=== PATIENT | male | born 1980 | race Caucasian/White ===

== ENCOUNTER 2020-11-12 21:14 | Emergency (ER) | payer BC ==
[2020-11-12] MEDS ORDERED: cefTRIAXone 2 GM in Sodium Chloride 0.9% 100 ML IV ONE (21:38)
[2020-11-12] MEDS ORDERED: Sodium Chloride 0.9% 10 ML Syringe FLUSH PRN (21:38)
[2020-11-12] MEDS ORDERED: Lidocaine/EPINEPHrine/Tetracaine Soln 1 ML TOP ONE (21:44)
[2020-11-12] MEDS ORDERED: Lidocaine 1% with EPINEPHrine 1:100,000 10 ML MDV INJECT ONE (21:51)
--- NOTE | 2020-11-12 21:57 | EDM.PDOC ---
ED HPI GENERAL MEDICAL PROBLEM - General Chief Complaint: Lower Extremity Injury/Pain Stated Complaint: RIGHT KNEE SWOLLEN/PAINFUL Time Seen by Provider: 11/12/20 21:23 Source of Information: Reports: Patient History Limitations: Reports: No Limitations - History of Present Illness INITIAL COMMENTS - FREE TEXT/NARRATIVE: The patient presents with left knee swelling, pain and redness. This all started on Thursday. [place] helping out the day before. He may have knelt on something. He has a low grade temp. He has no other symptoms such as cough, congestion, runny nose, chest pain, shortness of breath, abdominal pain, nausea or vomiting. He went to see Dr Jacobs in our clinic today and she did labs and a blood cultures and put him on keflex. She told him to go to the ER if he got worse. He has more swelling and the redness has spread up and down his leg. He has no medical problems. Onset: Gradual Duration: Day(s): Location: Reports: Lower Extremity, Right (knee) Quality: Reports: Sharp Severity: Moderate Improves with: Reports: Immobilization Worsens with: Reports: Movement Associated Symptoms: Reports: Fever/Chills. Denies: Chest Pain, Cough, Headaches, Nausea/Vomiting, Shortness of Breath - Related Data Allergies Allergy/AdvReac Type Severity Reaction Status Date / Time No Known Allergies Allergy Verified 11/12/20 21:25 Home Meds: Home Meds Losartan/Hydrochlorothiazide [Losartan-HCTZ 50-12.5 MG] 1 tab PO DAILY 11/12/20 [History] Omeprazole 40 mg PO DAILY 11/12/20 [History] Sertraline HCl 50 mg PO DAILY 11/12/20 [History] cephALEXin [Cephalexin] 1,000 mg PO BID 11/12/20 [History] Past Medical History Cardiovascular History: Reports: High Cholesterol, Hypertension Gastrointestinal History: Reports: GERD Social & Family History - Tobacco Use Tobacco Use Status *Q: Never Tobacco User Second Hand Smoke Exposure: No - Caffeine Use Caffeine Use: Reports: Coffee - Recreational Drug Use Recreational Drug Use: No Review of Systems - Review of Systems Review Of Systems: See Below Constitutional: Reports: No Symptoms Eyes: Reports: No Symptoms Ears: Reports: No Symptoms Nose: Reports: No Symptoms Mouth/Throat: Reports: No Symptoms Respiratory: Reports: No Symptoms Cardiovascular: Reports: No Symptoms GI/Abdominal: Reports: No Symptoms Genitourinary: Reports: No Symptoms Musculoskeletal: Reports: Other (Right knee pain, redness and swelling) ED EXAM, GENERAL - Physical Exam Exam: See Below Exam Limited By: No Limitations General Appearance: Alert, No Apparent Distress Ears: Normal External Exam Nose: Normal Inspection Head: Atraumatic, Normocephalic Neck: Normal Inspection Respiratory/Chest: No Respiratory Distress Extremities: Other (Erythema and edema to the right knee with spead of the erythema up his leg and down his leg. He does not appear to have a joint effusion. He has good sensation and pulses distally.) ED TRAUMA EXTREMITY PROCEDURES - I&D Site: right knee Skin Prep: Other (Chlorprep) Local Anesthesia: Lidocaine: 1% with EPI (and LET) Local Anesthetic Volume: 2cc Area Incised With: Needle (18 gauge) Drainage: Purulent, Small Amount (5ccs) Complications: No Course - Vital Signs Last Recorded V/S: Last Vital Signs Temp 97.6 F 11/12/20 21: Pulse 95 11/12/20 21:22 Resp 16 11/12/20 21:22 BP 168/94 H 11/12/20 21:22 Pulse Ox 98 11/12/20 21:22 - Orders/Labs/Meds Orders: Active Orders 24 hr Category Date Time Status Peripheral IV Care [RC] . DIRECTED Care 11/12/20 21:38 Active CULTURE BODY FLUID + SMEAR [RM] Stat Lab 11/12/20 22:44 Ordered Sodium Chloride 0.9% [Saline Flush] Med 11/12/20 21:38 Active 10 ml FLUSH ASDIRECTED PRN Peripheral IV Insertion Adult [OM.PC] Routine Oth 11/12/20 21:38 Ordered Medication Orders Sodium Chloride (Sodium Chloride 0.9% 10 Ml Syringe) 10 ml FLUSH ASDIRECTED PRN PRN Reason: Keep Vein Open Last Admin: 11/12/20 21:50 Dose: 10 ml Documented by: GRUPO Labs: Laboratory Tests 11/12/20 11/12/20 Range/Units 21:50 21:50 ESR 23 H (0-15) mm/hr C-Reactive Protein 15.4 H* (<1.0) mg/dL Meds: Medications Generic Name Dose Route Start Last Admin Trade Name Freq PRN Reason Stop Dose Admin Sodium Chloride 10 ml 11/12/20 21:38 11/12/20 21:50 Sodium Chloride 0.9% 10 Ml Syringe FLUSH 10 ml ASDIRECTED PRN Administration Keep Vein Open Discontinued Medications Generic Name Dose Route Start Last Admin Trade Name Yolanda PRN Reason Stop Dose Admin Ceftriaxone Sodium 2 gm/ 100 mls @ 200 mls/hr 11/12/20 21:38 11/12/20 21:49 Sodium Chloride IV 11/12/20 22:07 200 mls/hr ONETIME ONE Administration Lidocaine/Epinephrine 10 ml 11/12/20 21:51 11/12/20 21:56 Lidocaine 1% With Epinephrine 1:100,000 10 Ml Mdv INJECT 11/12/20 21:52 10 ml ONETIME ONE Administration Lidocaine/Tetracaine 1 ml 11/12/20 21:44 11/12/20 21:56 Lidocaine/Epinephrine/Tetracaine Soln 1 Ml TOP 11/12/20 21:45 1 ml ONETIME ONE Administration - Re-Assessments/Exams Free Text/Narrative Re-Assessment/Exam: 11/12/20 21:58 Looking at his labs today his WBC was elevated. I ordered an IV saline lock, rocephin 2 grams IV, CRP and ESR. I called Dr Chisholm and he was okay with that plan he did want me to try to aspirate some fluid from the patellar bursa. I will do that. 11/12/20 22:46 I was able to drain off only 5mls of purulent fluid. I sent it off for culture. I will get him a knee immobilizer and keep him on the keflex and have him follow up with Dr Chisholm. Departure - Departure Time of Disposition: 22:50 Disposition: Home, Self-Care 01 Condition: Good Clinical Impression: Cellulitis Qualifiers: Site of cellulitis: extremity Site of cellulitis of extremity: lower extremity Laterality: right Qualified Code(s): L03.115 - Cellulitis of right lower limb Bursitis Qualifiers: Bursitis location: knee Knee bursitis location: prepatellar bursitis Laterality: right Qualified Code(s): M70.41 - Prepatellar bursitis, right knee - Discharge Information *PRESCRIPTION DRUG MONITORING PROGRAM REVIEWED*: Not Applicable *COPY OF PRESCRIPTION DRUG MONITORING REPORT IN PATIENT MARCUS: Not Applicable Referrals: Codie Jacobs MD [Primary Care Provider] - Per Chisholm MD [Physician] - 2 Days Forms: ED Department Discharge Additional Instructions: Keep taking the Keflex as prescribed. Take tylenol or motrin for pain or fever. Wear the knee immobilizer for comfort. Put warm compresses on your right knee 3 to 5 times per day for 3 days. Follow up with Dr Chisholm in a couple days. Ca ll his office tomorrow and let they know he wanted to see you in a couple days. The redness may look worse for another day. After that if you have more fevers, pain, redness or swelling please return. Sepsis Event Note (ED) - Evaluation Sepsis Screening Result: Possible Sepsis Risk - Focused Exam Vital Signs: Vital Signs Temp Pulse Resp BP Pulse Ox 11/12/20 21:22 97.6 F 95 16 168/94 H 98 - My Orders Last 24 Hours: My Active Orders 11/12/20 21:38 Peripheral IV Care [RC] . DIRECTED Sodium Chloride 0.9% [Saline Flush] 10 ml FLUSH ASDIRECTED PRN Peripheral IV Insertion Adult [OM.PC] Routine 11/12/20 22:44 CULTURE BODY FLUID + SMEAR [RM] Stat - Assessment/Plan Last 24 Hours: My Active Orders 11/12/20 21:38 Peripheral IV Care [RC] . DIRECTED Sodium Chloride 0.9% [Saline Flush] 10 ml FLUSH ASDIRECTED PRN Peripheral IV Insertion Adult [OM.PC] Routine 11/12/20 22:44 CULTURE BODY FLUID + SMEAR [RM] Stat
== END 2020-11-12 23:03 | disposition home or self-care (01) ==
LOC: JD.ED 21:14
DX: L03.115 Cellulitis of right lower limb (principal); M70.41 Prepatellar bursitis, right knee; I10 Essential (primary) hypertension; K21.9 Gastro-esophageal reflux disease without esophagitis; D72.829 Elevated white blood cell count, unspecified; Z79.899 Other long term (current) drug therapy
CPT/HCPCS: 10060; 36415; 85652; 86140; 87070; 87077; 87186; 87205; 96365; 99283; J0696; 20610